=== PATIENT | male | born 1960 | race Two or more races ===

== ENCOUNTER → 2017-01-28 | Outpatient (CLI) | payer OTHER | END | disposition home or self-care (01) | LOC: HKI 14:38 | DX: M17.11 Unilateral primary osteoarthritis, right knee (principal) | CPT/HCPCS: 20610 ==

== ENCOUNTER 2017-09-28 15:51 | Emergency (ER) | payer OTHER ==
[2017-09-28] MEDS: SOD CHLORIDE 0.9% 1,000 ML IV (19:30)
[2017-09-28] MEDS: ONDANSETRON 4 MG INJ IV (19:31)
[2017-09-28] MEDS: morphine 4 MG/ML VIAL IV (19:31)
[2017-09-28 19:37] LABS: ADD MAN DIFF? NO
[2017-09-28 19:41] LABS: BASOPHILS % 0.6 % (0.0-2.0); EOSINOPHILS # 0.2 10^3/ul (0.0-0.5); EOSINOPHILS % 2.4 % (0.0-7.0); HEMATOCRIT 40.3 % (42.0-52.0); HEMOGLOBIN 13.7 g/dl (14.0-18.0); LYMPHOCYTES # 2.3 10^3/ul (0.8-2.9); LYMPHOCYTES % 32.9 % (15.0-51.0); MEAN CORPUSCULAR HEMOGLOBIN 31.6 pg (29.0-33.0); MEAN CORPUSCULAR VOLUME 92.9 fl (82.0-101.0); MEAN PLATELET VOLUME 11.5 fl (7.4-10.4); MONOCYTE # 0.7 10^3/ul (0.3-0.9); MONOCYTES % 10.6 % (0.0-11.0); NEUTROPHIL # 3.7 10^3/ul (1.6-7.5); NEUTROPHILS % 53.1 % (39.0-77.0); PLATELET COUNT 243 10^3/UL (140-415); RED BLOOD COUNT 4.34 10^6/ul (4.70-6.10); RED CELL DISTRIBUTION WIDTH 12.4 % (11.5-14.5)
[2017-09-28 20:04] LABS: ALANINE AMINOTRANSFERASE 28 IU/L (13-69); ALBUMIN 4.4 g/dl (3.3-4.9); ALBUMIN/GLOBULIN RATIO 1.33; ALKALINE PHOSPHATASE 71 IU/L (42-121); ANION GAP 15 (8-16); ASPARTATE AMINO TRANSFERASE 27 IU/L (15-46); BILIRUBIN,INDIRECT 0.5 mg/dl (0-1.1); BILIRUBIN,TOTAL 0.5 mg/dl (0.2-1.3); BLOOD UREA NITROGEN 12 mg/dl (7-20); CALCIUM 9.2 mg/dl (8.4-10.2); CARBON DIOXIDE 25 mmol/L (21-31); CHLORIDE 107 mmol/L (97-110); CREATININE 0.68 mg/dl (0.61-1.24); GLUCOSE 96 mg/dl (70-220); LIPASE 112 U/L (23-300); POTASSIUM 3.9 mmol/L (3.5-5.1); SODIUM 143 mmol/L (135-144); TOTAL PROTEIN 7.7 g/dl (6.1-8.1)
[2017-09-28 20:17] LABS: TROPONIN-I < 0.010 ng/ml (0.000-0.120)
[2017-09-28] MEDS: KETOROLAC 30 MG INJ IV (21:39)
== END 2017-09-28 22:00 | disposition home or self-care (01) ==
LOC: E/R 15:51
DX: N23 Unspecified renal colic (principal); R19.7 Diarrhea, unspecified
CPT/HCPCS: 36415; 76705; 80053; 83690; 84484; 85025; 96374; 96375; 99285-25

== ENCOUNTER 2018-05-02 15:07 | Emergency (ER) | payer SELFPAY, OTHER | END 2018-05-02 21:55 | disposition left against medical advice (07) | LOC: E/R 15:07 | DX: Z53.21 Procedure and treatment not carried out due to patient leaving prior to being seen by health care provider (principal) ==